=== PATIENT | female | born 1995 | race Caucasian/White ===

== ENCOUNTER 2019-03-02 10:41 | Inpatient (IN) | payer BC, SELFPAY ==
[2019-03-02] VITALS (12 sets, daily range): BP systolic 93–148; BP diastolic 55–93; PULSE 92–136; RESP 14–18; TEMP 36.9–38.9; O2SAT 93–99; BMI 39.1; BMI 38.9
--- NOTE | 2019-03-02 10:57 | CT_ITS ---
STUDY: CT ABDOMEN AND PELVIS WITHOUT CONTRAST REASON FOR EXAM: Female, 23 years old. Right flank pain RADIATION DOSAGE (If Supplied By Facility): CTDIvol = ( 18.00 ) mGy, DLP = ( 908.21 ) mGycm TECHNIQUE: Transaxial images were obtained from the dome of the diaphragm to the symphysis pubis without oral contrast, and without intravenous contrast. Sagittal and coronal images were reconstructed. Individualized dose optimization techniques were used for this CT. COMPARISON: None. FINDINGS: Evaluation of the abdominal viscera is limited in the absence of intravenous contrast. The visualized lung bases are clear. The visualized portions of the heart and pericardium are within normal limits. There are no calcified gallstones present. The liver is low in density, consistent with fatty infiltration. The spleen is normal in size. The pancreas demonstrates an unremarkable unenhanced appearance. The adrenal glands are within normal limits. There is mild right hydroureteronephrosis with perinephric stranding adjacent to the right kidney. There are no renal or ureteral stones. There is no left hydronephrosis. Normal visualized stomach. There is no bowel obstruction or inflammation. The appendix is not visualized, but there are no findings to suggest acute appendicitis. The aorta is normal in caliber. There is no abdominal or pelvic free air, free fluid, fluid collection or lymphadenopathy. There is an intrauterine device noted. There are bilateral adnexal cysts which are likely physiologic. There are no destructive osseous lesions. CT/Abdomen/Pelvis without Cont IMPRESSION: Mild right hydroureteronephrosis with right perinephric stranding. No urinary calculi. This may be due to a recently passed stone or may be due to infection. Clinical correlation is recommended. If indicated, a contrast-enhanced CT can be performed to evaluate for pyelonephritis. Bilateral adnexal cysts which are likely physiologic. No bowel obstruction or inflammation. Normal appendix. Fatty liver. Electronically Signed: Ernesto Day, at 12:47 EDT Tel , Service support ,
[2019-03-02] MEDS: 0.9% Normal Saline 1,000 ML 1000 ML IV (11:16)
[2019-03-02] MEDS: Ketorolac 30 MG/ML Syringe IV (11:16)
[2019-03-02] MEDS: Ondansetron 4 MG/2 ML Vial IV ×2 (11:16→17:02)
--- NOTE | 2019-03-02 11:20 | ED.VIS.GEN ---
History of Present Illness Informant: Patient Onset: Yesterday Context: Gradual Onset Timing: Continuous Quality: sharp Location: right flank Current Severity: Severe Maximum Severity: Severe Worsened by: nothing Relieved by: remaining still Associated Symptoms: fever, nausea Narrative: 23-year-old female presents to the emergency department from urgent care with fever, and right flank pain. Patient woke up yesterday morning with pain in her right flank. It is sharp in nature. It radiates to her right lower back. She states nothing really makes it better or worse. She noticed yesterday morning she felt warm and took her temperature and it was 102 ?F orally. She is been nauseated but has not had any vomiting or diarrhea. She is not having any urinary symptoms. She has no vaginal bleeding or discharge. She is not having any shortness of breath or chest pain. She has no rash. She denies IV drug abuse. Pain does not radiate to her lower extremities. She denies a history of similar symptoms. Prior similar symptoms: No Recent Illness/Hospitalization: No <Maciej Patel - Last Filed: 03/02/19 13:38> <Soy Smith - Last Filed: 03/02/19 14:09> Chief Complaint: Flank Pain Past Medical History Past Medical History: None Surgical History: no surgical history <Maciej Patel - Last Filed: 03/02/19 13:38> Smoking Status: Never smoker <Soy Smith - Last Filed: 03/02/19 14:09> - Allergies and Home Meds Allergies/Adverse Reactions: Allergies No Known Allergies Allergy (Verified 03/02/19 10:46) Primary Care Physician: Care Physician,No Primary [Primary Care Provider] - Review of Systems General: Reports: Chills, Fever Gastrointestinal: Reports: Abdominal pain, Nausea Musculoskeletal: Reports: Back pain <Maciej Patel - Last Filed: 03/02/19 13:38> Physical Exam Vital Signs/Narrative: Vital Signs Temp Pulse Resp BP Pulse Ox 03/02/19 11:18 129/69 H 03/02/19 11:10 119 H 18 98 03/02/19 11:07 102.1 F H 125 H 14 148/93 H 97 03/02/19 10:42 102.1 F H 136 H 14 148/93 H 97 Inital Vital Signs reviewed: Yes General: Well nourished, Well developed, No Acute Distress Head: Normocephalic, Atraumatic Eyes: Perrl, EOMI ENT: Moist mucous membranes Neck: Supple, Nontender Cardiovascular: Regular rhythm, Tachycardia Abdomen: Soft, Nondistended, Normal bowel sounds, No masses, Tender - RLQ TTP. no guaring or rebound Back: Nontender, Normal Inspection, -. Negative for: CVA tenderness Extremities: Nontender, No edema Skin: Normal color, No rash Neurological: Alert, Oriented x3 Psychological: Normal affect <Maciej Patel - Last Filed: 03/02/19 13:38> Vital Signs/Narrative: Vital Signs Temp Pulse Resp BP Pulse Ox 03/02/19 11:18 129/69 H 03/02/19 11:10 119 H 18 98 03/02/19 11:07 102.1 F H 125 H 14 148/93 H 97 03/02/19 10:42 102.1 F H 136 H 14 148/93 H 97 <Soy Smith - Last Filed: 03/02/19 14:09> Diagnostic/Tx/Re-eval - Medical Decision Making dr smith I agree with the history physical exam as documented by the physician's assistant accounting manager seen with them, she has right-sided abdominal pain seen in urgent care the abdomen shows some discomfort to the right side abdomen denies upper lower extremities unremarkable vague flank pain, no vomiting Mirena control denies at this time the differential is rather extensive includes UTI kidney stone appendicitis screening labs are obtained see the chart for full management and results Patient's white count 17,000 she is febrile tachycardic sepsis protocol is followed IV antibiotic started, the UA showed nothing acute however the CT showed signs of pyelonephritis/right-sided hydronephrosis no obvious kidney stone given all the above we will contact the hospital for admission she remains stable Final impression Urinary tract infection, Sirs <Soy Smith - Last Filed: 03/02/19 14:09> ED Disposition <Maciej Patel - Last Filed: 03/02/19 13:38> <Soy Smith - Last Filed: 03/02/19 14:09> - Plan for ED Patient: Disposition: Acute Care Hospital [facility] Diagnosis: Acute pyelonephritis, Sepsis Referrals: Care Physician,No Primary [Primary Care Provider] -
[2019-03-02 11:22] LABS: Absolute Lymphocyte Count 1.48 X10^3/ul (0.83-4.51); Basophil# 0.01 X10^3/uL; Basophil% 0.1 % (0-1); Hemoglobin 13.1 g/dl (12.0-15.0); Lymphocyte # 1.48 X10^3/ul (4.0); Lymphocyte % 8.7 % (19-41); Mean Corp Hgb Conc 33.6 g/gl (32-36); Mean Corpuscular Volume 92.4 fL (81-99); Monocyte# 1.52 X10^3/uL; Monocyte% 8.9 % (0-10); Neutrophil # 14.01 X10^3/uL (2.7-7.7); Neutrophil % 82.1 % (47-70); Platelet Count 227 K/mm3 (150-450); RBC Distribution Width CV 12.1 % (11.6-14.6); RBC Distribution Width SD 40.9 fl (35.1-43.9); Red Blood Count 4.22 M/mm3 (4.2-5.4); White Blood Count 17.1 K/mm3 (4.4-11.0)
[2019-03-02 11:23] LABS: Differential Indicated SCAN CRITERIA MET; POSITIVE COUNT NO; POSITIVE DIFFERENTIAL YES; POSITIVE MORPHOLOGY NO
[2019-03-02 11:35] LABS: ALB/GLOB Ratio 0.7 RATIO (0.9-2.4); AST(SGOT) 17 U/L (15-37); Alanine Aminotransfer ALT/SGPT 33 U/L (13-56); Albumin, Serum 3.5 g/dL (3.2-5.0); Alkaline Phosphatase 88 U/L (45-117); Anion Gap 3 (5-15); BUN 7 mg/dL (7-18); BUN/Creat Ratio 7.3 RATIO (10-20); Calcium,Total 8.4 mg/dL (8.5-10.1); Chloride 103 mmol/L (98-107); Creatinine, Serum 0.96 mg/dL (0.55-1.02); EST Glomerular Filtration Rate 77 mL/min (>60); Est Glom Filt Rate - Afr Amer 93 mL/min (>60); Estimated Creatinine Clearance 72.08 ml/min; Globulin 4.8 g/dL (2.2-4.2); Glucose 122 mg/dL (74-106); Lipase 98 U/L (73-393); Potassium 3.5 mmol/L (3.5-5.1); Protein, Total 8.3 g/dL (6.4-8.2); Sodium Level 133 mmol/L (136-145)
[2019-03-02 11:39] LABS: Internal QC Validated? YES +Cl - CLEAR BKGD; Pregnancy, Serum, hCG Quali. NEGATIVE Negative
[2019-03-02 11:51] LABS: Differential Comment SCANNED
[2019-03-02 12:01] LABS: Mucous, Urine 0 SEEN /hpf (<or=2+); Red Blood Cells-Urine 0 SEEN /hpf (0-5); Squamous Epithelial Cells - UA 0 SEEN /hpf (5-10)
[2019-03-02 12:02] LABS: Color, Urine Straw (Yellow); Glucose, Dipstick Normal (Normal); Ketone-Dipstick Negative (Negative); Leukocyte Esterase-Dipstick 100 /ul (Negative); Nitrite-Dipstick Negative (Negative); Occult Blood-Urine Negative /ul (Negative); Protein-Dipstick Negative (Negative); Urine Bilirubin Dipstick Negative (Negative); Urine Clarity Clear (Clear); Urine Urobilinogen Normal (Normal)
[2019-03-02 12:08] LABS: Bacteria 1+ /hpf (None Seen); White Blood Cells 0-5 SEEN /hpf (0-5)
[2019-03-02 13:04] LABS: International Normalized Ratio 1.1; Prothrombin Time (Protime)PT. 14.2 SECONDS (11.7-14.9)
[2019-03-02] MEDS: 0.9% Normal Saline 1,000 ML 999 ML IV (13:09)
[2019-03-02] MEDS: Ceftriaxone 1 GM/50 ML BAG IV (13:19)
[2019-03-02 13:29] LABS: Lactic Acid 0.8 mmol/L (0.4-2.0)
[2019-03-02] MEDS: Morphine 4 MG/ML Syringe IV ×2 (13:32→17:02)
[2019-03-02 15:24] LABS: Hemoglobin A1c 5.3 % (4.2-6.3)
[2019-03-02] MEDS: Ciprofloxacin 400 MG/200 ML BAG 200 MG IV (15:29)
[2019-03-02] MEDS: Ibuprofen 400 MG Tablet PO (15:34)
--- NOTE | 2019-03-02 16:33 | PCM.HP.STD ---
Problem List (1) Acute pyelonephritis Status: Acute (2) Sepsis Status: Acute History of Present Illness Date of Admission: 03/02/19 Chief Complaint: right flank pain The patient is a 23 year old F with pmhx of obesity, who presents to the ER with c/o fevers and chills. She started feeling ill on sunday. She woke up with chills and shaking. Later she took a nap and woke up in a heavy sweat. She attempted to go to work and continued to feel worse with ongoing fevers and chills. She started to have right flank and lower back pain with radiation around to the RLQ. She denies urinary symptoms - no dysuria, urgency, increased frequency. She went to urgent care and was sent to the ER. She has tachycardia, fever, and leukocytosis. CT showed hydronephrosis and hydroureter right side. 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 Denies: Weight Change HEENT: Denies: Head Aches, Sinus Congestion, Sinus Drainage Cardiovascular: Denies: Chest Pain, Palpitations Respiratory: Denies: Cough, Shortness of breath at rest, Sputum production Gastrointestinal: Reports: Abdominal Pain. Denies: Nausea, Vomiting Genitourinary: Reports: - - flank pain. Denies: Dysuria, Frequency, Nocturia, Urgency Musculoskeletal: Denies: Joint Pain, Joint Tenderness Skin: Denies: Rash, Wounds Neurological: Denies: Numbness, Tingling, Focal weakness Psychiatric: Denies: Anxiety, Depression, Homicidal Ideations, Suicidal Ideations Hematologic/ Lymphatic: Denies: Easy Bruising, Easy Bleeding VTE Information - Inpt Only VTE Present on Admission: No VTE Mechan Device Prophylaxis: None VTE Pharm Prophylaxis ordered?: No Patient Problems: Active and Suspected Problems Acute pyelonephritis (Acute) Sepsis (Acute) - Physical Exam General: Alert, Oriented x3, Cooperative HEENT: Atraumatic, PERRLA, EOMI, Normocephalic Neck: Supple, No JVD, Negative Carotid Bruits Lungs: Clear to auscultation, Normal air movement Cardiovascular: Regular rate, No murmurs Abdomen: Bowel Sounds Present, Soft, Tender - RLQ tenderness. Right lower back tenderness., - Extremities: No edema, Capillary Refill Less than 3 Seconds Skin: No rashes, No breakdown Musculoskeletal: No Tenderness to Palpation of Joints or Extremities Neurological: Cranial nerves II-XII grossly intact Psych/Mental Status: Normal Affect, Appropriate, Alert and oriented to time, place, person, mood and affect Vital Signs Temp Pulse Resp BP Pulse Ox 98.9 F 112 H 18 132/69 H 98 03/02/19 14:49 03/02/19 14:49 03/02/19 14:49 03/02/19 14:49 03/02/19 14:49 Oxygen Delivery Method Room Air Weight: 213 lb Body Mass Index (BMI) 38.9 Laboratory Tests Past 24 Hrs 03/02/19 03/02/19 03/02/19 11:10 11:10 11:10 WBC 17.1 H RBC 4.22 Hgb 13.1 Hct 39.0 MCV 92.4 MCH 31.0 MCHC 33.6 RDW 12.1 RDW Differential 40.9 Plt Count 227 MPV 10.0 Immature Gran % (Auto) 0.200 Neut % (Auto) 82.1 H Lymph % (Auto) 8.7 L [place] % (Auto) 8.9 Eos % (Auto) 0.0 Baso % (Auto) 0.1 Absolute Neuts (auto) 14.0 H Absolute Lymphs (auto) 1.48 Total Counted Not Reportable Differential Comment SCANNED PT INR Sodium 133 L Potassium 3.5 Chloride 103 Carbon Dioxide 27.0 Anion Gap 3 L BUN 7 Creatinine 0.96 Estim Creat Clear Calc 72.08 Est GFR (MDRD) Af Amer 93 Est GFR (MDRD) Non-Af 77 BUN/Creatinine Ratio 7.3 L Glucose 122 H Hemoglobin A1c Lactic Acid Calcium 8.4 L Total Bilirubin 0.70 AST 17 ALT 33 Alkaline Phosphatase 88 Total Protein 8.3 H Albumin 3.5 Globulin 4.8 H Albumin/Globulin Ratio 0.7 L Lipase 98 Serum , Qual NEGATIVE Urine Color Urine Clarity Urine pH Ur Specific [place] Urine Protein Urine Glucose (UA) Urine Ketones Urine Occult Blood Urine Nitrite Urine Bilirubin Urine Urobilinogen Ur Leukocyte Esterase Urine RBC Urine WBC Ur Squamous Epith Cells Urine Bacteria Urine Mucus 03/02/19 03/02/19 03/02/19 11:10 11:10 11:55 WBC RBC Hgb Hct MCV MCH MCHC RDW RDW Differential Plt Count MPV Immature Gran % (Auto) Neut % (Auto) Lymph % (Auto) [place] % (Auto) Eos % (Auto) Baso % (Auto) Absolute Neuts (auto) Absolute Lymphs (auto) Total Counted Differential Comment PT 14.2 INR 1.1 Sodium Potassium Chloride Carbon Dioxide Anion Gap BUN Creatinine Estim Creat Clear Calc Est GFR (MDRD) Af Amer Est GFR (MDRD) Non-Af BUN/Creatinine Ratio Glucose Hemoglobin A1c 5.3 Lactic Acid Calcium Total Bilirubin AST ALT Alkaline Phosphatase Total Protein Albumin Globulin Albumin/Globulin Ratio Lipase Serum , Qual Urine Color Straw Urine Clarity Clear Urine pH 8.0 Ur Specific [place] 1.010 Urine Protein Negative Urine Glucose (UA) Normal Urine Ketones Negative Urine Occult Blood Negative Urine Nitrite Negative Urine Bilirubin Negative Urine Urobilinogen Normal Ur Leukocyte Esterase 100 H Urine RBC 0 SEEN Urine WBC 0-5 SEEN Ur Squamous Epith Cells 0 SEEN Urine Bacteria 1+ Urine Mucus 0 SEEN 03/02/19 12:43 WBC RBC Hgb Hct MCV MCH MCHC RDW RDW Differential Plt Count MPV Immature Gran % (Auto) Neut % (Auto) Lymph % (Auto) [place] % (Auto) Eos % (Auto) Baso % (Auto) Absolute Neuts (auto) Absolute Lymphs (auto) Total Counted Differential Comment PT INR Sodium Potassium Chloride Carbon Dioxide Anion Gap BUN Creatinine Estim Creat Clear Calc Est GFR (MDRD) Af Amer Est GFR (MDRD) Non-Af BUN/Creatinine Ratio Glucose Hemoglobin A1c Lactic Acid 0.8 Calcium Total Bilirubin AST ALT Alkaline Phosphatase Total Protein Albumin Globulin Albumin/Globulin Ratio Lipase Serum , Qual Urine Color Urine Clarity Urine pH Ur Specific [place] Urine Protein Urine Glucose (UA) Urine Ketones Urine Occult Blood Urine Nitrite Urine Bilirubin Urine Urobilinogen Ur Leukocyte Esterase Urine RBC Urine WBC Ur Squamous Epith Cells Urine Bacteria Urine Mucus Assessment/Plan All Active Problems Acute pyelonephritis (Acute) Sepsis (Acute) Supervision of normal (Acute) 1. Acute sepsis 2/2 pyelonephritis - + fever, leukocytosis, tachycardia. UA borderline and no dysuria, however flank pain along with hydronephrosis and hydroureter right, however this may have represented a passed stone - she has no hx kidney stones.. screen negative. Given rocephin in ER, cipro added. Follow culture. IV hydration. Supportive care. 2. Obesity - dietary eval DVT ppx: lovenox This patient was seen by Kishan Oglesby PA-C under the supervision of Dr. Stephen.
[2019-03-02] MEDS: Acetaminophen 500 MG Tablet 1000 MG PO ×2 (16:55→22:28)
[2019-03-02] MEDS: 0.9% NaCl Peripheral Flush Adult/Peds IV (19:49)
[2019-03-02] MEDS: proMETHazine 25 MG/ML Syringe 12.5 MG IV (19:49)
[2019-03-03 00:36] VITALS: BP 99/55; PULSE 88; RESP 16; TEMP 36.9; O2SAT 93
[2019-03-03] MEDS: Ibuprofen 400 MG Tablet PO ×2 (00:39→07:40)
[2019-03-03 05:14] VITALS: BP 105/53; PULSE 72; RESP 16; TEMP 36.5; O2SAT 95
[2019-03-03] MEDS: Acetaminophen 500 MG Tablet 1000 MG PO ×3 (05:16→22:05)
[2019-03-03] MEDS: Ceftriaxone 1 GM/50 ML BAG IV (09:15)
[2019-03-03] MEDS: Enoxaparin 40 MG/0.4 ML Syringe SC (09:19)
[2019-03-03 09:23] VITALS: BP 116/62; PULSE 101; RESP 18; TEMP 37.1; O2SAT 92
[2019-03-03] MEDS: oxyCODONE 5 MG Tablet 10 MG PO (09:28)
[2019-03-03] MEDS: Ciprofloxacin 400 MG/200 ML BAG 200 MG IV ×2 (09:54→22:05)
--- NOTE | 2019-03-03 11:00 | CASEMGMT ---
RN MITA Face to Face with patient for initial transition planning/care coordination assessment. RN CM introduced self and role at [facility]. Patient lying in bed, alert and oriented, mother at bedside. Patient willing to participate in assessment and is able to answer all questions appropriately. Care providers, pharmacy, and demographics verified. Patient wishes to discharge home, denies need for home health at this time. Patient states she has no further needs or concerns at this time. CM to follow for discharge planning needs that may arise. PCP: No PCP, list provided Specialists: none Preferred Pharmacy: [facility] Insurance: [place] Prescription Benefit: yes Living Will/HPOA: none LNOK: mother Living Arrangements: Patient lives in [address] home, independent. Transportation: self/family DME/HHC: Denies any DME or HHC Disposition Plan: Patient to discharge home with family support and follow-up plans in place. Monica AGRAWAL, RN, CM
[2019-03-03] MEDS: Ondansetron 4 MG/2 ML Vial IV (11:20)
--- NOTE | 2019-03-03 11:55 | PCM.PROGNOTE ---
Patient Problems: Active and Suspected Problems Acute pyelonephritis (Acute) Sepsis (Acute) Subjective: No further fevers, no subjective chills overnight. She primarily c/o nausea, RLQ pain, and discomfort in her flank that does not allow her to lay on her right side at all. No Dysuria. No hx stones. - Physical Exam General: Alert, Oriented x3, Cooperative HEENT: Atraumatic, PERRLA, EOMI, Normocephalic Neck: Supple, No JVD, Negative Carotid Bruits Lungs: Clear to auscultation, Normal air movement Cardiovascular: Regular rate, No murmurs Abdomen: Bowel Sounds Present, Soft, Tender Extremities: No edema, Capillary Refill Less than 3 Seconds Skin: No rashes, No breakdown Musculoskeletal: No Tenderness to Palpation of Joints or Extremities Neurological: Cranial nerves II-XII grossly intact Psych/Mental Status: Normal Affect, Appropriate, Alert and oriented to time, place, person, mood and affect Vital Signs Temp Pulse Resp BP Pulse Ox 98.7 F 101 H 18 116/62 92 03/03/19 09:23 03/03/19 09:23 03/03/19 09:23 03/03/19 09:23 03/03/19 09:23 Oxygen Delivery Method Room Air Weight: 213 lb Body Mass Index (BMI) 38.9 Intake and Output for Last 24 Hours 03/01/19 03/02/19 03/03/19 23:59 23:59 23:59 Intake Total 527 / 527 3823 / 3823 Output Total 500 / 500 2400 / 2400 Balance 1423 / 1423 Laboratory Tests Past 24 Hrs 03/02/19 03/02/19 03/02/19 11:10 11:10 11:55 PT 14.2 INR 1.1 Hemoglobin A1c 5.3 Lactic Acid Urine Color Straw Urine Clarity Clear Urine pH 8.0 Ur Specific [place] 1.010 Urine Protein Negative Urine Glucose (UA) Normal Urine Ketones Negative Urine Occult Blood Negative Urine Nitrite Negative Urine Bilirubin Negative Urine Urobilinogen Normal Ur Leukocyte Esterase 100 H Urine RBC 0 SEEN Urine WBC 0-5 SEEN Ur Squamous Epith Cells 0 SEEN Urine Bacteria 1+ Urine Mucus 0 SEEN 03/02/19 12:43 PT INR Hemoglobin A1c Lactic Acid 0.8 Urine Color Urine Clarity Urine pH Ur Specific [place] Urine Protein Urine Glucose (UA) Urine Ketones Urine Occult Blood Urine Nitrite Urine Bilirubin Urine Urobilinogen Ur Leukocyte Esterase Urine RBC Urine WBC Ur Squamous Epith Cells Urine Bacteria Urine Mucus Medical Necessity - Tobacco Use Smoking Status: Never smoker Tobacco Use: Non-smoker Assessment/Plan All Active Problems Acute pyelonephritis (Acute) Sepsis (Acute) Supervision of normal (Acute) 1. Acute sepsis 2/2 pyelonephritis - improved, ongoing RLQ pain and flank pain. Again, no dysuria throughout the course of this illness. CT with hydronephrosis and perinephric stranding, possibly 2/2 passed stone. UA is not impressive. -fevers resolved -suspicion for passed stone, no hx, C/s placed to Dr. Moore. 2. Obesity - dietary eval DVT ppx: lovenox This patient was seen by Kishan Oglesby PA-C under the supervision of Dr. Stephen.
[2019-03-03 15:09] VITALS: BP 126/70; PULSE 106; RESP 18; TEMP 37.2; O2SAT 94
[2019-03-03] MEDS: proMETHazine 25 MG/ML Syringe 12.5 MG IV (15:23)
[2019-03-03 22:02] VITALS: BP 111/75; PULSE 103; RESP 16; TEMP 37.7; O2SAT 97
[2019-03-03 22:10] VITALS: PULSE 103; RESP 16; O2SAT 97
[2019-03-04 02:21] VITALS: BP 116/76; PULSE 93; RESP 18; TEMP 37.3; O2SAT 93
[2019-03-04] MEDS: Ibuprofen 400 MG Tablet PO (02:27)
[2019-03-04] MEDS: Acetaminophen 500 MG Tablet 1000 MG PO (05:40)
[2019-03-04 08:46] VITALS: BP 113/75; PULSE 95; RESP 16; TEMP 36.8; O2SAT 92
[2019-03-04 08:50] VITALS: PULSE 100
--- NOTE | 2019-03-04 09:42 | PCM.CONS.GEN ---
Problem List (1) Acute pyelonephritis Status: Acute Reason for Consult Date of Consultation: 03/04/19 Reason for Consultation: acute pyelonephritis, hydronephrosis History of Present Illness: The patient is a 23 year old F with a history of recurrent urinary tract infections who presented to the office with signs of pyelonephritis including shaking chills and fever. She also had flank pain on the right side that radiated into her abdomen. She did not have lower urinary tract symptoms. She had fever as high as 102. She has never had pyelonephritis in the past. 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: Alone Smoking Status: Never smoker Tobacco Use: Non-smoker Alcohol: Occasional Drugs: None - *Family History Maternal History Items: No pertinent history Paternal History Items: No pertinent history Review of Systems Constitutional: Reports: Fever Eyes: Denies: Vision Change HEENT: Denies: Visual Changes Cardiovascular: Denies: Chest Pain Respiratory: Denies: Shortness of Breath Gastrointestinal: Denies: Abdominal Pain Genitourinary: Denies: Dysuria, Frequency Gynecological: Denies: Vaginal discharge Skin: Denies: Dryness Endocrine: Denies: Change in Body Habitus Patient Problems: Active and Suspected Problems (Last Reviewed 03/04/19 @ 09:45 by Sonja Moore MD) Acute pyelonephritis (Acute) Sepsis (Acute) - Physical Exam General: Alert, Oriented x3, Cooperative, No apparent distress HEENT: Normocephalic Oral: Moist Mucosa Neck: Supple Lungs: Normal air movement Cardiovascular: Regular Rhythm, Tachycardic Abdomen: Soft Extremities: No clubbing Skin: No rashes Musculoskeletal: No Muscle Wasting Neurological: Cranial nerves II-XII grossly intact Psych/Mental Status: Normal Affect Vital Signs Temp Pulse Resp BP Pulse Ox 98.2 F 95 16 113/75 92 03/04/19 08:46 03/04/19 08:46 03/04/19 08:46 03/04/19 08:46 03/04/19 08:46 Oxygen Flow Rate (L/min) 2 Oxygen Delivery Method Room Air Weight: 96.615 kg Body Mass Index (BMI) 38.9 Intake and Output for Last 24 Hours 03/02/19 03/03/19 03/04/19 23:59 23:59 23:59 Intake Total 527 / 527 4763 / 6142 2260 / 2260 Output Total 500 / 500 3100 / 5200 3700 / 3700 Balance 1663 / 942 -1440 / -1440 Microbiology Past 72 Hours 03/02/19 11:55 Urine Culture - Final Urine, Clean Catch Presumptive E. coli CT scan report and images reviewed. I feel that the hydroureteronephrosis is most consistent with her pyelonephritis. Will repeat imaging with renal ultrasound. Assessment/Plan All Active Problems (Last Reviewed 03/04/19 @ 09:45 by Sonja Moore MD) Supervision of normal (Acute) Acute pyelonephritis (Acute) Sepsis (Acute) Complete at minimum a 10 to 14-day course of full antibiotic coverage 90 days of prophylactic Keflex 250 mg nightly followed by 250 mg immediately following intercourse for the following 6 months. Repeat renal ultrasound on Sunday to confirm resolution of right-sided hydronephrosis. If patient continues to be febrile would recommend repeat imaging sooner. Will discuss further intervention and physiology of urinary tract infections in the office in the next 1 to 2 weeks. Will follow with you, thank you for the privilege of this consult.
[2019-03-04] MEDS: Ciprofloxacin 400 MG/200 ML BAG 200 MG IV (09:47)
[2019-03-04] MEDS: Enoxaparin 40 MG/0.4 ML Syringe SC (09:48)
[2019-03-04] MEDS: Ceftriaxone 1 GM/50 ML BAG IV (10:51)
--- NOTE | 2019-03-04 11:25 | PCM.DC ---
- Discharge Diagnoses Current Active Problems: Current Active and Chronic Problems (Last Reviewed 03/04/19 @ 09:45 by Sonja Moore MD) Acute pyelonephritis (Acute) Sepsis (Acute) You will use the following diet at home:: No restrictions Your food should be the consistency of: Regular Your liquids should be the consistency of: Regular/Thin Discharge Activity: Return to Normal Activity Allergies/Adverse Reactions: Allergies No Known Allergies Allergy (Verified 03/02/19 10:46) Medications to take at Discharge Cephalexin [Keflex] 250 mg PO QHS #90 cap 03/04/19 Cephalexin [Keflex] 500 mg PO BID #14 cap 03/04/19 Ibuprofen [Motrin] 400 mg PO Q4H PRN PRN tab 03/04/19 The following prescriptions were given: Cephalexin [Keflex] 500 mg PO BID #14 cap Transmission Status: Pending to [facility] Cephalexin [Keflex] 250 mg PO QHS #90 cap Transmission Status: Pending to [facility] Primary Care Physician: Care Physician,No Primary [Primary Care Provider] - Please follow up with your Primary Care Physician in: 2 weeks Test Results: Test results from this visit will be discussed in further detail at your follow-up appointment, if applicable. Please Follow Up With: Sonja Moore MD When: 3 days
[2019-03-04 12:29] VITALS: BP 121/87; PULSE 80; RESP 18; TEMP 36.7
--- NOTE | 2019-03-04 14:43 | PCM.DC.SUM ---
Discharge Date and Diagnosis Date of Admission: 03/02/19 Date of Discharge: 03/04/19 - Primary Discharge Diagnosis Acute pyelonephritis 2/2 E coli Right hydronephrosis Frequent UTIs Obesity Hospital Course and Treatment Imaging Results: CT/Abdomen/Pelvis without Cont IMPRESSION: Mild right hydroureteronephrosis with right perinephric stranding. No urinary calculi. This may be due to a recently passed stone or may be due to infection. Clinical correlation is recommended. If indicated, a contrast-enhanced CT can be performed to evaluate for pyelonephritis. Bilateral adnexal cysts which are likely physiologic. No bowel obstruction or inflammation. Normal appendix. Fatty liver. Consults: Teresa - Urology Operations: None Procedures: None Summary of Care Provided: Hospital Course: The patient is a 23 year old F with pmhx of obesity who presented to the ER with c/o right flank pain, pain radiating into the RLQ, fevers, and chills, and no dysuria. She appeared to have acute sepsis 2/2 pyelonephritis. UA was positive, she had a WBC count of 17k, a fever of 102.1, and tachycardia to 136. Lactate was negative. CT abdomen/pelvis showed right hydroureteronephrosis, right perinephric stranding suggestive of pyelo or recent stone passage, and likely physiologic adnexal cysts bilaterally, and a fatty liver. She was started on rocephin and admitted to the general medical floor. Symptoms responded well to abx and supportive care. Urology was consulted given the findings on the CT abd/pelvis. Urology felt this was c/w pyelonephritis and did not suspect any stone involvement. Urology recommended f.u in the office on sunday for a repeat renal US, and completion of a 10-14 day course of keflex followed by nightly keflex prophylactically with extra doses with increased sexual activity. Her urine grew out pansensitive E coli. Blood cultures were negative to date. She was given rxs to complete a total of ten days of abx therapy, and given 3 months of prophylactic keflex. She was instructed to keep the follow up with Dr. Moore on Sunday. She should also follow up with her PCP in 1-2 weeks. She was discharged home in stable condition. This patient was seen by Kishan Oglesby PA-C under the supervision of Dr. Stephen. [] - Physical Exam General: Alert, Oriented x3, Cooperative HEENT: Atraumatic, PERRLA, EOMI, Normocephalic Neck: Supple, No JVD, Negative Carotid Bruits Lungs: Clear to auscultation, Normal air movement Cardiovascular: Regular rate, No murmurs Abdomen: Bowel Sounds Present, Soft, Tender - RLQ tenderness Extremities: No edema, Capillary Refill Less than 3 Seconds Skin: No rashes, No breakdown Musculoskeletal: No Tenderness to Palpation of Joints or Extremities Neurological: Cranial nerves II-XII grossly intact Psych/Mental Status: Normal Affect, Appropriate Vital Signs Temp Pulse Resp BP Pulse Ox 98.1 F 80 18 121/87 H 92 03/04/19 12:29 03/04/19 12:29 03/04/19 12:29 03/04/19 12:29 03/04/19 08:46 Oxygen Flow Rate (L/min) 2 Oxygen Delivery Method Room Air Weight: 213 lb Body Mass Index (BMI) 38.9 Intake and Output for Last 24 Hours 03/02/19 03/03/19 03/04/19 23:59 23:59 23:59 Intake Total 527 / 527 4763 / 6142 3850 / 3850 Output Total 500 / 500 3100 / 5200 5800 / 5800 Balance 1663 / 942 -1950 / -1950 Microbiology Past 72 Hours 03/02/19 12:43 Blood Culture - Preliminary Blood Culture (Wb) - Anticubital Left No growth in 48 hours. 03/02/19 12:55 Blood Culture - Preliminary Blood Culture (Wb) - Right Forearm No growth in 48 hours. 03/02/19 11:55 Urine Culture - Final Urine, Clean Catch Presumptive E. coli Discharge Diet: No Restrictions Discharge Activity: Return to Normal Activity Home Medications: Medications to take at Discharge Cephalexin [Keflex] 250 mg PO QHS #90 cap 03/04/19 Cephalexin [Keflex] 500 mg PO BID #14 cap 03/04/19 Ibuprofen [Motrin] 400 mg PO Q4H PRN PRN tab 03/04/19 Following Prescrptions Were Given to Patient: Cephalexin [Keflex] 500 mg PO BID #14 cap Transmission Status: Received by [facility] [place] #30 Cephalexin [Keflex] 250 mg PO QHS #90 cap Transmission Status: Received by [facility] #30 Primary Care Physician: Care Physician,No Primary [Primary Care Provider] - Please follow up with your Primary Care Physician in: 2 weeks Please Follow Up With: Sonja Moore MD When: 3 days Disposition: Home Minutes spent on discharge:: 35 Patient Condition:: Stable Medical Necessity - Tobacco Use Smoking Status: Never smoker Tobacco Use: Non-smoker Meaningful Use Info Meaningful Use Diagnoses (Choose all that apply): None applicable
== END 2019-03-04 12:45 | disposition home or self-care (01) | DRG 872 ==
LOC: ED 13:38 → MS3 14:32
PROVIDERS: Admitting Provider Internal Medicine; Emergency Provider Physician Assistant Medical; Visit Provider Internal Medicine
DX: A41.9 Sepsis, unspecified organism (principal); N13.6 Pyonephrosis; E87.1 Hypo-osmolality and hyponatremia; N10 Acute pyelonephritis; B96.20 Unspecified Escherichia coli [E. coli] as the cause of diseases classified elsewhere; E66.9 Obesity, unspecified; Z87.440 Personal history of urinary (tract) infections; Z68.38 Body mass index [BMI] 38.0-38.9, adult
CPT/HCPCS: 74176; 80053; 81001; 83036; 83605; 83690; 84703; 85025; 85610; 87040; 87086; 87088; 87186; 97802; 99284; J7030; J7040; A4216; J0744; J2405

== ENCOUNTER → 2019-04-02 | Outpatient (CLI) | payer BC, SELFPAY ==
[2019-03-02 14:45] VITALS: BMI 38.9
--- NOTE | 2019-04-02 17:06 | US_ITS ---
STUDY: RENAL ULTRASOUND - COMPLETE REASON FOR EXAM: Female, 23 years old. Right hydronephrosis seen on CT, right flank pain TECHNIQUE: Ultrasound evaluation of the kidneys was performed with real-time and static hernandez-scale imaging. COMPARISON: None. FINDINGS: RIGHT KIDNEY: Normal location of the right kidney, which is normal in size. The right kidney measures 10.0 x 4.1 x 3.5 cm. There is a normal cortex of the right kidney. The renal cortex measures 1.3 cm. There is no right renal mass or cyst. There are no right renal calculi. There is no right hydronephrosis. DISTAL RIGHT URETER: There is non-visualization of the distal right ureter. There is no demonstrated right ureterovesical junction calculus. There is a visualized right ureteral jet. LEFT KIDNEY: Normal location of the left kidney, which is normal in size. The left kidney measures 11.3 x 5.0 x 4.2 cm. There is a normal cortex of the left kidney. The renal cortex measures 1.1 cm. There is no left renal mass or cyst. There are no left renal calculi. There is no left hydronephrosis. DISTAL LEFT URETER: There is non-visualization of the distal left ureter. There is no demonstrated left ureterovesical junction calculus. There is no demonstrated left ureteral jet. BLADDER: The distended urinary bladder has a volume of 92 ml. The empty urinary bladder has a volume of 2 ml. There is a normal wall thickness of the distended urinary bladder. There is no demonstrated mass within the urinary bladder. There are no demonstrated bladder calculi. US/Kidney and Bladder IMPRESSION: Normal ultrasound of the kidneys and urinary bladder. Electronically Signed: Rio Mccallum MD at 21:24 EDT , Service support ,
== END | disposition home or self-care (01) ==
LOC: US 16:57
PROVIDERS: Referring Provider Urology; Visit Provider Urology
DX: N13.30 Unspecified hydronephrosis (principal); N11.9 Chronic tubulo-interstitial nephritis, unspecified
CPT/HCPCS: 76770

== ENCOUNTER → 2019-06-19 | Outpatient (CLI) | payer BC, SELFPAY ==
[2019-03-02 14:45] VITALS: BMI 38.9
[2019-06-25 13:05] LABS: HPV Reflexed? NOT INDICATED
== END | disposition home or self-care (01) ==
LOC: WOBLAB 13:11
PROVIDERS: Visit Provider Obstetrics & Gynecology
DX: Z12.4 Encounter for screening for malignant neoplasm of cervix (principal)
CPT/HCPCS: 88175; G0145

== ENCOUNTER → 2020-02-17 15:37 | Outpatient (CLI) | payer BC, SELFPAY ==
[2019-03-02 14:45] VITALS: BMI 38.9
== END ==
PROVIDERS: Visit Provider Urology
DX: R35.0 Frequency of micturition (principal); N39.0 Urinary tract infection, site not specified
CPT/HCPCS: 87077; 87086; 87088; 87186

== ENCOUNTER → 2020-02-25 15:43 | Outpatient (CLI) | payer BC, SELFPAY ==
[2019-03-02 14:45] VITALS: BMI 38.9
--- NOTE | 2020-02-25 15:48 | CT_ITS ---
STUDY: CT ABDOMEN AND PELVIS WITHOUT CONTRAST REASON FOR EXAM: Female, 24 years old. RIGHT FLANK PAIN RADIATION DOSAGE (If Supplied By Facility): CTDIvol = ( 19.94 ) mGy, DLP = ( 1016.40 ) mGycm TECHNIQUE: Transaxial images were obtained from the dome of the diaphragm to the symphysis pubis without oral contrast, and without intravenous contrast. Sagittal and coronal images were reconstructed. Individualized dose optimization techniques were used for this CT. COMPARISON: 2018 FINDINGS: The visualized lung bases are unremarkable. The visualized portions of the heart are within normal limits. Normal liver. Normal gallbladder and extrahepatic biliary system. Normal spleen. Normal pancreas. Normal bilateral adrenal glands. Normal right kidney. Normal left kidney. Specifically, no obstructive uropathy Normal visualized stomach. Multiple nondistended fluid-filled small bowel loops are noted consistent with ileus. Normal colon. The appendix is visualized and appears normal. Appendix best seen on coronal recon image 84 Normal abdominal aorta. Normal inferior vena cava. Normal retroperitoneum. Normal urinary bladder. Uterus contains an IUD. There is a 4 cm right ovarian cyst which may be responsible for the patient''s pain Normal abdominal wall. Normal osseous structures. CT/Abdomen/Pelvis without Cont IMPRESSION: 4 cm right ovarian cyst No obstructive uropathy or suspicious solid organ abnormality Small bowel ileus No CT evidence of an acute inflammatory process, normal appendix visualized Electronically Signed: Grant Shahid MD at 16:35 EDT , Service support ,
== END ==
PROVIDERS: Referring Provider Urology; Visit Provider Urology
DX: R10.9 Unspecified abdominal pain (principal); R39.15 Urgency of urination; Z87.442 Personal history of urinary calculi
CPT/HCPCS: 74176

== ENCOUNTER → 2020-05-27 11:03 | Outpatient (CLI) | payer BC, SELFPAY ==
[2019-03-02 14:45] VITALS: BMI 38.9
[2020-05-30 14:07] LABS: Chlamydia By Nucleic Acid AMP Negative (Negative)
[2020-05-31 00:29] LABS: Gonococcus By Nucleic Acid AMP Negative (Negative)
== END ==
PROVIDERS: Visit Provider Obstetrics & Gynecology
DX: Z11.3 Encounter for screening for infections with a predominantly sexual mode of transmission (principal)
CPT/HCPCS: 87491; 87591

== ENCOUNTER 2025-04-27 17:21 | Emergency (ER) | payer OTHER, SELFPAY ==
[2025-04-27 17:22] VITALS: BP 145/90; PULSE 85; RESP 18; TEMP 37.1; O2SAT 99; BMI 42.2
--- NOTE | 2025-04-27 18:42 | CT_ITS ---
PROCEDURE: CT ABDOMEN/PELVIS WITHOUT CONTRAST 04/27/2025 REASON FOR EXAM: RIGHT FLANK PAIN TECHNIQUE: CT ABDOMEN/PELVIS WITHOUT CONTRAST. Noncontrast technique limits evaluation of the abdominal and pelvic viscera. Coronal and Sagittal reconstruction series were provided. One or more dose reduction techniques were used (e.g., Automated exposure control, adjustment of the mA and/or kV according to patient size, use of iterative reconstruction technique). RADIATION DOSE SUMMARY: CTDlvol: 23.5 mGy DLP: 1168.17 mGycm COMPARISON: Abdominal CTs dated 02/25/2020, 03/02/2019. FINDINGS: Lung bases: Clear. Liver: Unremarkable. Gallbladder: Contracted, grossly unremarkable. No biliary ductal dilatation. Spleen: Normal size and morphology. Pancreas: Unremarkable. Adrenals: Unremarkable. Kidneys: Unremarkable. No urolithiasis or hydroureteronephrosis. Bladder: Unremarkable. Reproductive Organs: IUD within the uterine cavity. Left ovarian cyst/dominant follicle measuring up to roughly 2.8 cm. Previously seen right ovarian cyst is no longer present. Bowel: No evidence of bowel obstruction or active inflammatory process. Normal appendix. Mild distal colonic diverticulosis without evidence for active diverticulitis/colitis. Lymph nodes: No enlarged abdominopelvic lymph nodes. Vasculature: Normal caliber abdominal aorta and IVC. Peritoneum / Retroperitoneum: No free fluid or air. Bones: Unremarkable. CT/Abdomen/Pelvis without Cont IMPRESSION: No acute or active inflammatory intra-abdominal pathology. No urinary tract calculi or hydroureteronephrosis. Reading Location: [id number]
--- NOTE | 2025-04-27 18:51 | ED.VIS.FEGU ---
HPI HPI - Female History of Present Illness Chief Complaint: Flank Pain Narrative Narrative: Chief complaint and HPI: Right flank pain. 29-year-old female presents for evaluation of right flank pain. Patient states last week she developed right flank pain, odorous urine, hematuria in which she scheduled an appointment with telehealth. She was started on Bactrim on Sunday. States she has continued to have right flank pain in which she went to an urgent care and was referred to the emergency department for imaging. She states that she was told her urine was clear there. She denies any fever, chills, shortness of breath, chest pain, abdominal pain, nausea, vomiting, diarrhea, constipation. No history of urolithiasis. Review of systems: See HPI Medications: As listed on the chart Allergies: As listed on the chart PFSH: Per chart Vital signs: As listed on the chart. Reviewed. Physical exam: Gen: A&O x3, NAD Head: Normocephalic, atraumatic Eyes: No sclera icterus, conjunctiva clear ENT: Moist mucous membranes Neck: Trachea midline, No JVD CV: RRR, no murmurs, no peripheral edema Resp: Lungs CTA BL, no w/r/c GI: Abd soft, non-distended, mild tenderness to palpation in the right flank, no r/r/g : No CVA tenderness Musc: Full ROM, no deformity Skin: Warm, dry Neuro: Alert, oriented, grossly intact, sensation intact Psych: Cooperative, appropriate mood and affect [facility] Medical History Urinary tract bacterial infections Home Medications ?Medication ?Instructions ?Recorded ?Last Taken ?Type sulfamethoxazole 800 1 tab PO BID 04/27/25 Unknown History mg-trimethoprim 160 mg tablet Allergy/AdvReac Type Severity Reaction Status Date / Time No Known Allergies Allergy Verified 04/27/25 17:22 Social History Smoking Status: Never smoker EXAM Physical Exam Const Vital Signs: 04/27/25 17:22 04/27/25 19:21 Temperature 98.7 F Temperature Source Oral Pulse Rate 85 71 Respiratory Rate 18 18 Blood Pressure 145/90 H 128/65 H Blood Pressure Mean 108 86 Pulse Ox 99 99 Oxygen Delivery Method Room Air MDM MDM MDM Narrative Medical decision making narrative: 29-year-old female presents for evaluation of right flank pain. Patient was recently diagnosed with a UTI from telehealth in which she was placed on Bactrim. Right flank pain has not improved which is why she presents. Differential diagnosis includes but is not limited to UTI, urolithiasis, pyelonephritis, myofascial spasm. Patient offered pain medicine but declined. Basic labs ordered with urine and CT abdomen pelvis without contrast. With mild renal insufficiency of 1.2 to CBC without leukocytosis or anemia. BMP unremarkable. UA negative for UTI. Urine negative. CT abdomen pelvis shows no acute intra-abdominal pathology. No hydronephrosis or urolithiasis. Patient does have an IUD. Has a left ovarian cyst/dominant follicle measuring up to roughly 2.8 cm. Patient's pain is on the right. On reevaluation, patient states her pain is still minimal. at this point in time, no clear etiology for patient's symptoms. May be myofascial spasm. Motrin Tylenol as needed for pain. Follow-up with PCP. Return precautions explained. Impression: 1. Right flank pain 2. Recent UTI Lab Data Labs: Laboratory Results - last 24 hr 04/27/25 18:53 WBC 9.7 RBC 4.19 L Hgb 13.7 Hct 39.9 MCV 95.2 MCH 32.7 H MCHC 34.3 RDW Std Deviation 44.5 H RDW Coeff of [place] 12.6 Plt Count 248 MPV 10.7 Immature Gran % (Auto) 0.300 Neut % (Auto) 65.8 Lymph % (Auto) 26.0 [place] % (Auto) 5.8 Eos % (Auto) 1.5 Baso % (Auto) 0.6 Absolute Neuts (auto) 6.4 Absolute Lymphs (auto) 2.51 Nucleated RBC % 0 Sodium 136 Potassium 4.2 Chloride 101 Carbon Dioxide 22.6 Anion Gap 13 BUN 8 Creatinine 0.91 Estim Creat Clear Calc 103.64 Est GFR (MDRD) Non-Af 87 BUN/Creatinine Ratio 9.1 L Glucose 91 Calcium 9.3 Urine Color Straw Urine Clarity Clear Urine pH 6.5 Ur Specific [place] 1.010 Urine Protein Negative Urine Glucose (UA) Normal Urine Ketones Negative Urine Occult Blood Negative Urine Nitrite Negative Urine Bilirubin Negative Urine Urobilinogen Normal Ur Leukocyte Esterase Negative Urine Test Negative Radiography Diagnostic Testing: Clinical Impression(s) from Imaging Studies Abdomen/Pelvis CT 04/27/25 18:42 IMPRESSION: No acute or active inflammatory intra-abdominal pathology. No urinary tract calculi or hydroureteronephrosis. Reading Location: [id number] Discharge Plan Triage Chief Complaint: Flank Pain ED Provider: Timur Ayala Dx/Rx/DC Orders Prescriptions: No Action sulfamethoxazole-trimethoprim 800-160 mg tablet 1 tab PO BID Primary Care Provider: Care Physician,No Primary Referrals: Care Physician,No Primary [Primary Care Provider] - Print Language: Syriac
[2025-04-27 18:59] LABS: Mucous, Urine 0 SEEN /hpf (<or=2+)
[2025-04-27 19:18] LABS: Internal QC Validated? YES +Cl - CLEAR BKGD; Pregnancy, Urine Negative Negative; Record Kit Lot#,Urine Preg 962302
[2025-04-27 19:20] LABS: Hematocrit 39.9 % (37-47); Hemoglobin 13.7 g/dL (12.0-15.0); Immature Granulocytes Count 0.030 X10^3/uL (0.0-0.0); Mean Corp Hgb Conc 34.3 g/dL (32-36); Mean Corpuscular Volume 95.2 fL (81-99); Mean Platelet Vol. 10.7 fl (6.2-12.0); NRBC Flagged by Analyzer 0 % (0-5); Platelet Count 248 K/mm3 (150-450); RBC Distribution Width CV 12.6 % (11.6-14.6); RBC Distribution Width SD 44.5 fl (35.1-43.9); Red Blood Count 4.19 M/mm3 (4.2-5.4); White Blood Count 9.7 K/mm3 (4.4-11.0)
[2025-04-27 19:21] VITALS: BP 128/65; PULSE 71; RESP 18; O2SAT 99
[2025-04-27 19:25] LABS: Color, Urine Straw (Yellow); Glucose, Dipstick Normal (Normal); Ketone-Dipstick Negative (Negative); Leukocyte Esterase-Dipstick Negative /ul (Negative); Nitrite-Dipstick Negative (Negative); Occult Blood-Urine Negative /ul (Negative); Protein-Dipstick Negative (Negative); Specific Gravity, Urine 1.010 (1.002-1.030); Urine Bilirubin Dipstick Negative (Negative)
[2025-04-27 19:40] LABS: Anion Gap 13 (5-15); BUN 8 mg/dL (4-19); BUN/Creat Ratio 9.1 RATIO (10-20); Calcium,Total 9.3 mg/dL (7.6-11.0); Carbon Dioxide 22.6 mmol/L (21.0-32.0); Chloride 101 mmol/L (98-108); Estimated Creatinine Clearance 103.64 ml/min (50-250); Glucose 91 mg/dL (70-99); Potassium 4.2 mmol/L (3.3-5.1)
[2025-04-27 20:42] LABS: Red Blood Cells-Urine 0-5 SEEN /hpf (0-5); Squamous Epithelial Cells - UA 0-5 SEEN /hpf (5-10)
[2025-04-27 20:46] VITALS: BP 142/70; PULSE 66; RESP 12; TEMP 36.8; O2SAT 100
== END 2025-04-27 20:48 | disposition home or self-care (01) ==
PROVIDERS: Emergency Provider Surgery; Visit Provider Surgery
DX: R10.9 Unspecified abdominal pain (principal); N39.0 Urinary tract infection, site not specified; N83.202 Unspecified ovarian cyst, left side; N28.9 Disorder of kidney and ureter, unspecified
CPT/HCPCS: 74176; 80048; 81001; 81025; 85025; 99283; A4216